=== PATIENT | female | born 2000 | race Hispanic/Latino ===

== ENCOUNTER 2020-05-10 07:49 | Emergency (ER) | payer SELFPAY ==
[2020-05-10 08:05] LABS: BASOPHILS % (AUTO) 0.2 % (0.0-5.0); EOSINOPHILS % (AUTO) 1.1 % (0.0-8.0); HEMATOCRIT 35.1 % (36-48); LYMPHOCYTES % (AUTO) 41.1 % (21.0-51.0); MEAN CORPUSCULAR HEMOGLOBIN 23.6 pg (27.0-33.0); MEAN CORPUSCULAR HGB CONC 30.2 g/dL (32.0-36.0); MONOCYTES % (AUTO) 5.8 % (3.0-13.0); NEUTROPHILS % (AUTO) 51.4 % (40.0-77.0); PLATELET COUNT (AUTO) 462 K/uL (130-400); RED CELL DISTRIBUTION WIDTH 14.9 % (11.0-15.5); WHITE BLOOD COUNT (AUTO) 12.6 K/uL (4.8-10.8)
[2020-05-10 08:38] LABS: ALBUMIN 3.6 g/dL (3.5-5.0); BILIRUBIN,TOTAL 0.1 mg/dL (0.2-1.0); CREATININE 0.7 mg/dL (0.5-1.5); POTASSIUM 3.6 mmol/L (3.5-5.1); TOTAL PROTEIN, SERUM 7.5 g/dL (6.0-8.3)
[2020-05-10] MEDS ORDERED: ONDANSETRON HCL 4 MG/2 ML VIAL ONE (09:04)
[2020-05-10] MEDS ORDERED: MORPHINE SULFATE 4 MG/1ML SYG ONE (09:04)
[2020-05-10 09:10] LABS: AMPHET/METH SCREEN,URINE NEGATIVE (NEGATIVE); BARBITURATE SCREEN, URINE NEGATIVE (NEGATIVE); BENZODIAZEPINES SCREEN,URINE NEGATIVE (NEGATIVE); CANNABINOID SCREEN,URINE NEGATIVE (NEGATIVE); COCAINE SCREEN,URINE NEGATIVE (NEGATIVE); OPIATE SCREEN,URINE NEGATIVE (NEGATIVE); PHENCYCLIDINE SCREEN,URINE NEGATIVE (NEGATIVE)
[2020-05-10 09:13] LABS: APPEARANCE,URINE CLOUDY (CLEAR); BILIRUBIN,URINE NEGATIVE (NEGATIVE); COLOR,URINE YELLOW (YELLOW); GLUCOSE, URINE (UA) NEGATIVE (NEGATIVE); KETONES,URINE NEGATIVE (NEGATIVE); LEUKOCYTE ESTERASE ,URINE NEGATIVE (NEGATIVE); NITRATE,URINE NEGATIVE (NEGATIVE); OCCULT BLOOD,URINE NEGATIVE (NEGATIVE); PROTEIN,URINE 30 mg/dL (NEGATIVE); UROBILINOGEN,URINE 0.2 mg/dL (0.2-1.0)
[2020-05-10 09:20] LABS: BACTERIA,URINE Moderate /HPF (None Seen); RBC,URINE 0-1 /HPF (0-1); SQUAMOUS EPITHELIAL CELL,UR Moderate /HPF (0-2)
== END 2020-05-10 09:58 | disposition home or self-care (01) ==
LOC: EDH 07:49
DX: K80.80 Other cholelithiasis without obstruction (principal); R03.0 Elevated blood-pressure reading, without diagnosis of hypertension; E66.01 Morbid (severe) obesity due to excess calories; Z68.42 Body mass index [BMI] 45.0-49.9, adult
CPT/HCPCS: 36415; 76700; 80053; 80305; 81001; 82550; 84484; 84702; 85025; 87088; 93005; 96374; 96375; 99285; J2270; J2405

== ENCOUNTER 2021-10-09 19:08 | Inpatient (IN) | payer OTHER, SELFPAY ==
[~2021-10-09] VITALS: Ht 165.1 cm; Wt 121.8 kg
[2021-10-09 19:53] LABS: BASOPHILS % (AUTO) 0.3 % (0.0-5.0); EOSINOPHILS % (AUTO) 0.4 % (0.0-8.0); HEMATOCRIT 38.5 % (36-48); LYMPHOCYTES % (AUTO) 21.8 % (21.0-51.0); MEAN CORPUSCULAR HGB CONC 30.6 g/dL (32.0-36.0); MEAN CORPUSCULAR VOLUME 81.6 fL (79-99); MONOCYTES % (AUTO) 6.4 % (3.0-13.0); NEUTROPHILS % (AUTO) 70.8 % (40.0-77.0); PLATELET COUNT (AUTO) 434 K/uL (130-400); RED BLOOD CELL COUNT(AUTO) 4.72 MIL/uL (4.00-5.50); RED CELL DISTRIBUTION WIDTH 14.7 % (11.0-15.5); WHITE BLOOD COUNT (AUTO) 10.4 K/uL (4.8-10.8)
[2021-10-09 19:54] LABS: APPEARANCE,URINE Cloudy (CLEAR); BILIRUBIN,URINE Negative (NEGATIVE); COLOR,URINE Dark Yellow (YELLOW); GLUCOSE, URINE (UA) Negative (NEGATIVE); KETONES,URINE Negative (NEGATIVE); LEUKOCYTE ESTERASE ,URINE Trace (NEGATIVE); NITRATE,URINE Negative (NEGATIVE); OCCULT BLOOD,URINE Negative (NEGATIVE); PH,URINE 7.5 (5.0-8.0); PROTEIN,URINE Trace mg/dL (NEGATIVE)
[2021-10-09] MEDS ORDERED: LIDOCAINE HCL 2% VISCOUS 15 ML UDCUP PO ONE (20:00)
[2021-10-09] MEDS ORDERED: DICYCLOMINE HCL 10 MG/5 ML ML PO ONE (20:00)
[2021-10-09] MEDS ORDERED: ONDANSETRON 4MG INJ IVP ONE (20:00)
[2021-10-09] MEDS ORDERED: MAG/ALUM/SIMETH 30 ML UDCUP PO ONE (20:00)
[2021-10-09] MEDS ORDERED: FAMOTIDINE 20MG TAB PO ONE (20:00)
[2021-10-09 20:04] LABS: HCG,QUAL RESULT NEGATIVE (NEGATIVE)
[2021-10-09 20:05] LABS: BACTERIA,URINE Moderate /HPF (None Seen)
[2021-10-09 20:06] LABS: MUCUS,URINE Few LPF (None Seen); SQUAMOUS EPITHELIAL CELL,UR Many /HPF (0-2)
[2021-10-09 20:26] LABS: CREATININE 0.7 mg/dL (0.5-1.5); POTASSIUM 3.9 mmol/L (3.5-5.1)
[2021-10-09] MEDS ORDERED: CEFTRIAXONE 1G VIAL IVP ONE (20:30)
[2021-10-09 20:32] LABS: BILIRUBIN,TOTAL 0.4 mg/dL (0.2-1.0); TOTAL PROTEIN, SERUM 7.9 g/dL (6.0-8.3)
[2021-10-09] MEDS ORDERED: ONDANSETRON 4MG INJ IV PRN (22:00)
[2021-10-09] MEDS ORDERED: CEFTRIAXONE 1G VIAL IV SCH (22:00)
[2021-10-09] MEDS ORDERED: MORPHINE 2 MG SYG IV PRN (22:00)
[2021-10-09] MEDS ORDERED: HYDROMORPHONE 1 MG INJ IV PRN (22:00)
[2021-10-09 22:24] LABS: CHOLESTEROL 173 mg/dL (<200); HDL CHOLESTEROL 48 mg/dL (35-85); LDL DIRECT 100 mg/dL (0-99); TRIGLYCERIDES 78 mg/dL (30-200)
[2021-10-09] MEDS: LACTATED RINGERS 1000ML 1,000 ML IV SCH (23:51)
[2021-10-10] MEDS ORDERED: ONDA4TAB10 PO (02:12)
[2021-10-10] MEDS ORDERED: OMEP20CA12 PO (02:12)
[2021-10-10 02:14] VITALS: BP 137/82
[2021-10-10 05:35] LABS: BASOPHILS % (AUTO) 0.2 % (0.0-5.0); HEMATOCRIT 34.6 % (36-48); LYMPHOCYTES % (AUTO) 19.9 % (21.0-51.0); MEAN CORPUSCULAR HEMOGLOBIN 25.1 pg (27.0-33.0); MEAN CORPUSCULAR HGB CONC 30.9 g/dL (32.0-36.0); MONOCYTES % (AUTO) 7.2 % (3.0-13.0); NEUTROPHILS % (AUTO) 71.3 % (40.0-77.0); PLATELET COUNT (AUTO) 370 K/uL (130-400); RED BLOOD CELL COUNT(AUTO) 4.27 MIL/uL (4.00-5.50); RED CELL DISTRIBUTION WIDTH 14.9 % (11.0-15.5)
[2021-10-10 05:51] LABS: CREATININE 0.5 mg/dL (0.5-1.5); MAGNESIUM 2.1 mg/dL (1.80-2.40); PHOSPHORUS 3.9 mg/dL (2.5-4.9); POTASSIUM 3.7 mmol/L (3.5-5.1)
[2021-10-10 08:00] VITALS: BP 135/59
[2021-10-10] MEDS ORDERED: ENOXAPARIN SODIUM 40 MG/0.4 ML SYRINGE SQ SCH (09:00)
[2021-10-10] MEDS: LACTATED RINGERS 1000ML 1,000 ML IV SCH (09:11)
[2021-10-10] MEDS: FAMOTIDINE 20MG VIAL IV SCH ×2 (09:11→20:07)
[2021-10-10 09:35] LABS: ALBUMIN 3.5 g/dL (3.5-5.0); BILIRUBIN,DIRECT 0.1 mg/dL (0.0-0.3); BILIRUBIN,TOTAL 0.4 mg/dL (0.2-1.0); TOTAL PROTEIN, SERUM 6.8 g/dL (6.0-8.3)
[2021-10-10 09:39] LABS: HEMOGLOBIN A1C 5.6 % (4.0-6.0)
[2021-10-10 12:00] VITALS: BP 128/60
[2021-10-10] MEDS ORDERED: LACTATED RINGERS 1000ML 1,000 ML IV ONE (15:26)
[2021-10-10 16:00] VITALS: BP 152/66
[2021-10-10] MEDS ORDERED: IOHEXOL 350 MG/ML 100ML INFUS..BTL IV ONE (17:50)
[2021-10-10 20:00] VITALS: BP 128/68
[2021-10-11] VITALS: BP 128/69
[2021-10-11 04:00] VITALS: BP 128/52
[2021-10-11 05:49] LABS: ALBUMIN 3.2 g/dL (3.5-5.0); BILIRUBIN,DIRECT 0.2 mg/dL (0.0-0.3); BILIRUBIN,TOTAL 0.7 mg/dL (0.2-1.0); CREATININE 0.5 mg/dL (0.5-1.5); POTASSIUM 3.9 mmol/L (3.5-5.1); TOTAL PROTEIN, SERUM 6.9 g/dL (6.0-8.3)
[2021-10-11 08:00] VITALS: BP 149/78
[2021-10-11] MEDS: FAMOTIDINE 20MG VIAL IV SCH (09:00)
[2021-10-11 12:02] VITALS: BP 133/76
[2021-10-11 16:00] VITALS: BP 155/64
== END 2021-10-11 18:30 | disposition home or self-care (01) | DRG 439 ==
LOC: EDH 19:08 → EDHIP 19:09 → 3BH 10-10 02:12
PROVIDERS: ADMIT Internal Medicine; ATTEND Internal Medicine
DX: K85.90 Acute pancreatitis without necrosis or infection, unspecified (principal); N39.0 Urinary tract infection, site not specified; Z68.41 Body mass index [BMI] 40.0-44.9, adult; K80.20 Calculus of gallbladder without cholecystitis without obstruction; E66.9 Obesity, unspecified; R74.01 Elevation of levels of liver transaminase levels
CPT/HCPCS: 36415; 74177; 76705; 80048; 80053; 80061; 80076; 81001; 81025; 83036; 83690; 83735; 84100; 85025; 87088; G0378; J0696; J1650; J2405; J3490; J7120; Q9967